=== PATIENT | female | born 1995 | race African-American/Black ===

== ENCOUNTER 2019-03-25 04:58 | Emergency (ER) | payer BC, MEDICAID ==
[~2019-03-25] VITALS: Ht 175.3 cm; Wt 96.0 kg
[2019-03-25] MEDS ORDERED: BACITRACIN ZINC OINT UDPKT TOP ONE (05:30)
[2019-03-25] MEDS ORDERED: HYDROCODONE/ACETAMINOPHEN 5/325MG TABLET PO ONE ×2 (05:30→08:15)
[2019-03-25] MEDS ORDERED: LIDOCAINE HCL/PF 1% 10 MG/ML 5ML VIAL IJ ONE (05:30)
[2019-03-25] MEDS ORDERED: TETANUS, DIPHTHERIA, PERTUSSIS VAC/PF 0.5ML (>7YR OLD) IM ONE (05:30)
[2019-03-25 08:45] VITALS: BP 141/91
== END 2019-03-25 08:54 | disposition home or self-care (01) ==
LOC: ER 04:58
DX: S01.111A Laceration without foreign body of right eyelid and periocular area, initial encounter (principal); F17.210 Nicotine dependence, cigarettes, uncomplicated; Y08.89XA Assault by other specified means, initial encounter; Y93.89 Activity, other specified; Y92.9 Unspecified place or not applicable; Z88.0 Allergy status to penicillin; Z87.01 Personal history of pneumonia (recurrent)
CPT/HCPCS: 12011; 70450; 70486; 81025; 90471; 90715; 99284; J3490